=== PATIENT | male | born 2000 | race Caucasian/White ===

== ENCOUNTER → 2021-06-03 | Outpatient (CLI) | payer OTHER | LOC: KOH-I 08:43 | DX: R10.9 Unspecified abdominal pain (principal); K76.0 Fatty (change of) liver, not elsewhere classified | CPT/HCPCS: 76700 ==

== ENCOUNTER → 2021-08-20 | Outpatient (CLI) | payer OTHER | LOC: RAD 09:53 → LAB 09:53 | DX: K59.09 Other constipation (principal); R94.5 Abnormal results of liver function studies | CPT/HCPCS: 74018 ==